=== PATIENT | male | born 1955 | race Native Hawaiian/Other Pacific Islander ===

== ENCOUNTER 2018-09-11 11:08 | Day surgery (SDC) | payer OTHER, BC | END 2018-09-11 13:15 | disposition home or self-care (01) | LOC: OR 11:08 | PROC: 08RJ3JZ Replacement of Right Lens with Synthetic Substitute, Percutaneous Approach (ICD-10-PCS; principal; 2018-09-11) | DX: H25.811 Combined forms of age-related cataract, right eye (principal) | CPT/HCPCS: 66984; J0171; V2632 ==